=== PATIENT | female | born 1985 | race Caucasian/White ===

== ENCOUNTER 2017-05-28 18:40 | Emergency (ER) | payer SELFPAY ==
[~2017-05-28] VITALS: Ht 157.5 cm; Wt 58.0 kg
[2017-05-28 18:54] VITALS: BP 148/90
[2017-05-28] MEDS ORDERED: SODIUM CHLORIDE FLUSH 10ML SYR IVF ONE (19:30)
[2017-05-28] MEDS ORDERED: ONDANSETRON 2MG/ML, 2ML IVPush ONE (19:30)
[2017-05-28] MEDS ORDERED: SODIUM CHLORIDE 0.9% 1,000ML IVBOLUS ONE (19:30)
== END 2017-05-28 19:40 | disposition left against medical advice (07) ==
LOC: ED 19:34
DX: R22.1 Localized swelling, mass and lump, neck (principal)
CPT/HCPCS: 87081; 87147; 87880; 99284